=== PATIENT | male | born 1985 | race Caucasian/White ===

== ENCOUNTER 2020-01-25 23:57 | Emergency (ER) | payer OTHER, SELFPAY ==
[2020-01-26 00:38] VITALS: BP 134/78; PULSE 94; RESP 16; TEMP 37.7; O2SAT 98; BMI 30.7
--- NOTE | 2020-01-26 00:51 | ED.GENADULT ---
HPI - General Adult General Chief complaint: General Medical Stated complaint: COVID SYMPTOMS Time Seen by Provider: 01/26/20 00:51 Source: patient Mode of arrival: ambulatory Limitations: no limitations History of Present Illness HPI narrative: This is a 34-year-old male with present patient of sore throat and cough and very mild shortness of breath without any fevers, chills, GI symptoms, symptoms. In addition, patient has mild body aches. Related Data Allergies Allergy/AdvReac Type Severity Reaction Status Date / Time No Known Allergies Allergy Verified 01/26/20 00:48 Review of Systems Review of Systems: Pertinent positives and negatives as stated in HPI 10 point review of systems is otherwise negative. FORMERLY [facility] Past Medical History Source: nursing notes reviewed Medical History No known health problems Social History Social History Alcohol intake: never Smoked in Last 30 Days: No Use of substances other than those prescribed or required for medical reasons: No Any prior treatment program specific to substance use: No Advance Directives: No Advance Directives Information Provided: No Physical Exam Vital Signs: Vital Signs: Last Vital Signs Temp 99.9 F 01/26/20 00:38 Pulse 94 01/26/20 00:38 Resp 16 01/26/20 00:38 BP 134/78 01/26/20 00:38 Pulse Ox 98 01/26/20 00:38 Body Mass Index 30.7 VITAL SIGNS: Reviewed. GENERAL: Well developed, well nourished, in no acute distress. HEAD: Normocephalic/atraumatic, EYES: PERRLA, EOMI intact without pain, no nystagmus/pallor/icterus noted EARS: Ext canals without abnormality, TMs non-bulging and non-erythematous NOSE: Nares patent bilateral OROPHARYNX: no oral lesions noted, posterior pharynx clear and non-erythematous without noted tonsillar enlargement/erythema/exudates NECK: Supple, no adenopathy LUNGS: Normal breath sounds. No adventitious sounds or accessory muscle use. SpO2<98> CARDIOVASCULAR: Regular rate and rhythm without noted murmurs, no JVD or lower extremity edema. ABDOMEN: Soft, non-tender, non-distended with bowel sounds. No rigidity. No guarding. No palpable masses or hernias noted MUSCULOSKELETAL: No tenderness, deformities, or effusions noted on gross inspection. EXTREMITIES: No cyanosis, clubbing or edema. SKIN: Inspection of the skin reveals no rashes, ulcerations, jaundice, pallor, or petechiae. NEUROLOGIC: Alert and oriented x 4. Strength and sensation to light touch were grossly intact x 4. Course Course Course Narrative: This is a 34-year-old male with history and clinical presentation consistent with viral syndrome, there is no findings on clinical exam of ear or throat bacterial type infections. Patient was swabbed for COVID-19 and discharged with strict instructions to self quarantine. Discharge Plan Discharge Clinical Impression: Viral syndrome Patient Disposition: Home, Self-Care Instructions: Viral Syndrome (ED) Additional Instructions: 1. Tylenol 1000 mg, orally, every 6 hours as needed for temperatures greater than 100.4 or body aches. Do not exceed 4000 mg within 24 hours. 2. ibuprofen 400 mg, orally with milk or food, every 6 hours as needed for temperatures greater than 100.4 or body aches. 3. your required by the [facility] to self quarantine until your called with your COVID-19 results. You must and adhere to all state regulated guidelines for COVID-19 testing and self quarantine. The patient and/or family acknowledge understanding of results (as applicable), diagnosis, treatment plan, need for follow up, and symptoms that should prompt a return to the emergency room. Referrals: Physician,Unknown [Primary Care Provider] - 2 days
== END 2020-01-26 01:40 | disposition home or self-care (01) ==
PROVIDERS: Emergency Provider Student in an Organized Health Care Education/Training Program
DX: B34.9 Viral infection, unspecified (principal); Z20.828 Contact with and (suspected) exposure to other viral communicable diseases; R50.9 Fever, unspecified
CPT/HCPCS: 99283; U0003

== ENCOUNTER 2021-09-15 02:32 | Emergency (ER) | payer OTHER, SELFPAY ==
--- NOTE | ~2021-09-15 | CT_ITS ---
EXAMINATION: CT HEAD WITHOUT CONTRAST CLINICAL INFORMATION: Numbness, headache. COMPARISON: None TECHNIQUE: Contiguous axial imaging was performed from the skull base to vertex without intravenous administration of contrast. This CT examination was performed using dose optimization techniques as appropriate, variously including the following: *Automated exposure control *Adjustment of mA and/or kV according to patient size (this includes techniques or standardized protocols for targeted exams where dose is matched to indication/reason for exam; i.e. extremities or head) *Use of iterative reconstruction technique DLP: 785 mGy-cm FINDINGS: There is no evidence of acute intracranial hemorrhage or territorial infarction. No abnormal mass effect or midline shift is seen. Lopez to white matter differentiation is well preserved. No extra-axial fluid collections are identified. The ventricles are normal in size. There is no abnormal attenuation within the brain parenchyma. The osseous structures and soft tissues are normal. The mastoid air cells and visualized portions of the paranasal sinuses are well aerated. CT/CT head/brain wo con IMPRESSION: No acute intracranial hemorrhage or mass effect.
[2021-09-15 02:36] VITALS: BP 135/87; PULSE 82; RESP 14; TEMP 37; O2SAT 97; BMI 29.7
--- NOTE | 2021-09-15 09:09 | ED_ITS ---
HPI - Abdominal Pain General Chief Complaint: Abdominal Pain Stated Complaint: Hernia/Dizziness Time Seen by Provider: 09/15/21 09:06 Source: patient and cat scan tech Mode of arrival: ambulatory Limitations: language barrier History of Present Illness HPI narrative: 35-year-old male previously healthy here with multiple complaints. Patient tells me he does not have a primary care doctor but he does have insurance. He has had pain around his umbilicus with a hernia palpated with certain movement for over 5 years. It has been intermittently painful over the last 2 years. There is no associated nausea, vomiting, diarrhea, constipation. No fevers or chills or urinary symptoms. Patient has never had this hernia evaluated. Patient also reports multiple life stresses over the last few weeks and history of anxiety. Not currently taking any medication for anxiety. He has been trying to establish a therapist but has been unsuccessful. Patient reports yesterday he was feeling quite anxious around 15:00. He started to have palpitation, perioral numbness and tingling, hand bilateral numbness and ting ling which lasted for approximately 2 hours. He took half a tablet of a friend's Xanax which seemed to improve his symptoms. Patient reports all symptoms are resolved with the exception of a mild headache. No dizziness, vision changes, nausea, vomiting, weakness, speech changes associated. Related Data Previous Rx's Medication Instructions Recorded hydroxyzine pamoate 50 mg capsule 50 mg PO TID PRN anxiety #14 caps 09/15/21 (Vistaril) Allergies Allergy/AdvReac Type Severity Reaction Status Date / Time No Known Allergies Allergy Verified 01/26/20 00:48 Review of Systems Review of Systems Yes all other systems are reviewed and are negative Constitutional: Reports no additional constitutional complaints, Denies body ache(s), Denies chills, Denies fever(s), Reports headache(s) and Denies weakness Eyes: Reports no additional eye complaints and Denies change in vision Reports system reviewed and no additional complaints, except as documented, Denies dizziness, Reports headache(s), Denies nasal congestion, Denies nasal discharge and Denies neck pain Cardiovascular: Reports no additional cardiovascular complaints, Denies chest pain, Denies leg edema and Denies dyspnea Respiratory: Reports no additional respiratory complaints, Denies cough and Denies dyspnea Gastrointestinal: Reports no additional gastrointestinal complaints, Reports abdominal pain, Denies diarrhea, Reports nausea and Denies vomiting Genitourinary: Denies urinary incontinence Musculoskeletal: Reports no additional musculoskeletal complaints, Denies back pain, Denies arthralgias, Denies joint swelling, Denies neck pain, Reports numbness and Reports tingling Skin/Breast: Reports system reviewed and no additional complaints, except as docu and Denies rash Reports system reviewed and no additional complaints, except as documented, Denies dizziness, Reports headache(s), Reports numbness, Reports tingling and Denies weakness PMFSH Past Medical History Attestation statement: The following information was validated with the patient. Source: old records reviewed and nursing notes reviewed Medical History No known health problems Social History Social History Alcohol intake: never Patient Tobacco Use Status: Never used Tobacco Advance Directives: No Advance Directives Information Provided: No Physical Exam ED Vital Signs: Vital Signs - 24 hr 09/15/21 02:36 09/15/21 09:49 09/15/21 11:42 Temperature 98.6 F 98.0 F 98.1 F Pulse Rate 82 64 75 Respiratory Rate 14 14 16 Blood Pressure 135/87 119/86 111/81 Pulse Oximetry 97 99 99 Oxygen Delivery Method Room Air Room Air Room Air BMI result Body Mass Index 29.7 Const General: cooperative, healthy appearing, comfortable and no acute distress Orientation/consciousness: patient oriented x3 Limitations: language barrier HENMT Head: Yes normal to inspection Ears: hearing grossly normal bilaterally and TM's normal bilaterally General nose exam: Normal external nose present Face and sinus: Yes normal facial exam Mouth: Normal oral and palatal mucosa present Throat: Yes posterior oropharynx normal, Yes tonsils normal and Yes uvula midline Eyes General: appearance normal, both eyes and all related structures Pupils: Equal, round and reactive pupils present Neck Neck: Yes normal visual inspection, Yes full ROM, Yes no lymphadenopathy and Yes no meningeal signs Chest Chest palpation & inspection: normal inspection of the chest Resp Effort & Inspection: normal respiratory effort Auscultation: clear to auscultation bilaterally Cardio Rate: regular rate Rhythm: regular rhythm Peripheral pulses: Peripheral pulses 2+ throughout GI Other: Mild tenderness around umbilicus but no rebound or guarding. No palpable hernia Inspection: Yes normal to inspection Palpation (GI): Soft to palpation and nontender Back/Spine/Pelvis Thoracic/Lumbar Spine: thoracic and lumbar spine normal to inspection Skin General skin exam: no rashes or lesions noted Neuro General: patient oriented x3, moves all extremities and no meningeal signs Cranial nerves: Yes CN's II-XII intact bilaterally, Yes Equal, round and reactive pupils present, Yes Bilaterally intact EOM present, Yes Nystagmus not present, Yes Normal facial strength present and Yes Midline tongue present Cognition (Neuro): normal cognition Gait exam (Neuro): Normal gait present Motor exam (neuro): 5/5 motor strength present throughout Sensory Exam: Normal double simultaneous stimulation for sensation Coordination: [id number] test normal, gqfh-[id number] test normal and tandem gait normal Extrem General: Yes normal to inspection, Yes no pedal edema and Yes no calf tenderness Course Course Course Narrative: 1000-Seen by Jonas from care team. Given outpatient reources. Printed list of PCPs accepting patient's insurance in the area was provided. Reevaluation(s) Reevaluation #1: 1145-labs are unremarkable. EKG shows no ischemic changes. CT head is negative. Plan for discharge home with follow-up with outpatient therapy, PCP, General surgery as needed. Reviewed worrisome signs and symptoms and when to return to the emergency department. Comfortable with plan for discharge home. MDM - Abdominal Pain MDM Narrative Medical decision making narrative: 35 yo male here with multiple complaints with seem ongoing for years but patient has no PCP/outpatient resources. He does have insurance. 1) Reports of periumbicul hernia felt during increased abdominal pressure >5 yrs with intermittent discomfort. On exam mild tenderness around the umbilicus with no rebound or guarding and no obvious hernia palpated. +BS. No reports of associated vomiting/diarrhea/constipation or fever. Low concern for incarcerated hernia. Patient can be referred to general surgery outpatient. 2) Episode yesterday of TIMMONS, perioral numbness/tingling, bilateral hand numbness/tingling, dizziness with preceding anxiety improved with xanax. Still has slight TIMMONS but all other symptoms resolved. Normal neuro exam with no focal findings today. Will check CT head, EKG, labs. Seems c/w with panic attack. Less concerned for ICH/CVA/lesion. 3) Increasing anxiety with multiple life stressors. NO SI/HI. Will have care team provide resources to establish outpatient providers. 4) NO PCP. Will have CM provide resources. Medical Records Attestation: I reviewed the patient's medical records. Lab Data Attestation: I reviewed the patient's lab results. Result diagrams: 09/15/21 10:41 09/15/21 10:41 Labs: Lab Results 09/15/21 09/15/21 09/15/21 Range/Units 10:01 10:41 10:41 WBC 6.5 (4.8-10.8) X10*3/uL RBC 5.14 (4.60-5.80) X10*6/uL Hgb 14.0 (14.0-18.0) g/dl Hct 41.2 L (42.0-52.0) % MCV 80.2 (80.0-98.0) fL MCH 27.2 (27.0-33.0) pg MCHC 34.0 (31.0-36.0) g/dl RDW 12.9 (11.0-16.0) % Plt Count 208 (160-400) X10*3/uL MPV 9.9 (9.4-12.4) fL Immature Gran % (Auto) 0.5 H (0.0-0.4) % Neut % (Auto) 58.8 (45-73) % Lymph % (Auto) 28.3 (20-40) % [place] % (Auto) 11.1 H (2-11) % Eos % (Auto) 1.1 (0-4) % Baso % (Auto) 0.2 (0-2) % Lymph # (Auto) 1.8 (1.2-4.9) X10*3/uL [place] # (Auto) 0.7 (0.1-1.2) X10*3/uL Eos # (Auto) 0.1 (0.0-0.4) X10*3/uL Baso # (Auto) 0.0 (0.0-0.2) X10*3/uL Abs Immat Gran (auto) 0.03 (0.00-0.03) X10*3/uL Absolute Neuts (auto) 3.8 (2.0-8.3) x10*3/uL Absolute Nucleated RBC 0.000 (0.0-0.012) X10*3/uL Nucleated RBC % (auto) 0.0 (0.0-0.2) /100WBC Sodium 138 (135-145) mmol/L Potassium 3.9 (3.3-5.1) mmol/L Chloride 103 (96-108) mmol/L Carbon Dioxide 29 (22-29) mmol/L Anion Gap 10 L (12-20) BUN 10 (9-16) mg/dL Creatinine 0.85 (0.5-1.4) mg/dL Estim Creat Clear Calc 127.1 Estimated GFR > 60 Random Glucose 99 (60-115) mg/dL Calcium 9.2 (8.4-10.2) mg/dL Magnesium 2.0 (1.6-2.6) mg/dL Total Bilirubin 0.5 (0.0-1.0) mg/dL Direct Bilirubin 0.2 (0.0-0.5) mg/dL AST 19 (5-37) U/L ALT 28 (0-40) U/L Alkaline Phosphatase 82 (39-117) U/L Troponin I High Sens (<3.5-35.0) ng/L Total Protein 7.3 (6.5-8.0) g/dL Albumin 4.7 (3.5-5.0) g/dL Urine Color YELLOW Urine Appearance CLEAR Urine pH 6.0 (5.0-8.0) Ur Specific [place] 1.015 (1.005-1.025) Urine Protein NEG (NEG-TRACE) MG/DL Urine Glucose (UA) NEG (NEG) MG/DL Urine Ketones NEG (NEG) MG/DL Urine Blood NEG (NEG) Urine Nitrite NEG (NEG) Ur Leukocyte Esterase NEG (NEG) 09/15/21 Range/Units 10:41 WBC (4.8-10.8) X10*3/uL RBC (4.60-5.80) X10*6/uL Hgb (14.0-18.0) g/dl Hct (42.0-52.0) % MCV (80.0-98.0) fL MCH (27.0-33.0) pg MCHC (31.0-36.0) g/dl RDW (11.0-16.0) % Plt Count (160-400) X10*3/uL MPV (9.4-12.4) fL Immature Gran % (Auto) (0.0-0.4) % Neut % (Auto) (45-73) % Lymph % (Auto) (20-40) % [place] % (Auto) (2-11) % Eos % (Auto) (0-4) % Baso % (Auto) (0-2) % Lymph # (Auto) (1.2-4.9) X10*3/uL [place] # (Auto) (0.1-1.2) X10*3/uL Eos # (Auto) (0.0-0.4) X10*3/uL Baso # (Auto) (0.0-0.2) X10*3/uL Abs Immat Gran (auto) (0.00-0.03) X10*3/uL Absolute Neuts (auto) (2.0-8.3) x10*3/uL Absolute Nucleated RBC (0.0-0.012) X10*3/uL Nucleated RBC % (auto) (0.0-0.2) /100WBC Sodium (135-145) mmol/L Potassium (3.3-5.1) mmol/L Chloride (96-108) mmol/L Carbon Dioxide (22-29) mmol/L Anion Gap (12-20) BUN (9-16) mg/dL Creatinine (0.5-1.4) mg/dL Estim Creat Clear Calc Estimated GFR Random Glucose (60-115) mg/dL Calcium (8.4-10.2) mg/dL Magnesium (1.6-2.6) mg/dL Total Bilirubin (0.0-1.0) mg/dL Direct Bilirubin (0.0-0.5) mg/dL AST (5-37) U/L ALT (0-40) U/L Alkaline Phosphatase (39-117) U/L Troponin I High Sens < 3.5 (<3.5-35.0) ng/L Total Protein (6.5-8.0) g/dL Albumin (3.5-5.0) g/dL Urine Color Urine Appearance Urine pH (5.0-8.0) Ur Specific [place] (1.005-1.025) Urine Protein (NEG-TRACE) MG/DL Urine Glucose (UA) (NEG) MG/DL Urine Ketones (NEG) MG/DL Urine Blood (NEG) Urine Nitrite (NEG) Ur Leukocyte Esterase (NEG) Imaging Data CT scan - head: Attestation: I personally reviewed and interpreted this imaging study as follows: Radiologist's impression: [address] [address] [address] Scan Report Signed Patient: Henrry Johnson MR#: [id number] : 1985 Acct:[id number] Age/Sex: 35 / M ADM Date: 09/15/21 Loc: HO.ED Attending Dr: Ordering Physician: Renée Lopez NP Date of Service: 09/15/21 Procedure(s): CT head/brain wo con Accession Number(s): [id number] cc: Renée Lopez NP~ EXAMINATION: CT HEAD WITHOUT CONTRAST CLINICAL INFORMATION: Numbness, headache.? COMPARISON: None TECHNIQUE: Contiguous axial imaging was performed from the skull base to vertex without intravenous administration of contrast. This CT examination was performed using dose optimization techniques as appropriate, variously including the following: *Automated exposure control *Adjustment of mA and/or kV according to patient size (this includes techniques or standardized protocols for targeted exams where dose is matched to indication/reason for exam; i.e. extremities or head) *Use of iterative reconstruction technique DLP: 785 mGy-cm FINDINGS: There is no evidence of acute intracranial hemorrhage or territorial infarction. No abnormal mass effect or midline shift is seen. Lopez to white matter differentiation is well preserved. No extra-axial fluid collections are identified. The ventricles are normal in size. There is no abnormal attenuation within the brain parenchyma. The osseous structures and soft tissues are normal. The mastoid air cells and visualized portions of the paranasal sinuses are well aerated. ? CT/CT head/brain wo con IMPRESSION: No acute intracranial hemorrhage or mass effect. ECG Data Attestation: I personally reviewed and interpreted this ECG as follows: ECG interpretation date: 09/15/21 ECG interpretation time: 09:48 Interpretation: Normal sinus rhythm with a rate of 60, normal LA, normal QRS, normal QT Discharge Plan Discharge Clinical Impression: Anxiety, Hernia Patient Disposition: Home, Self-Care Additional Instructions: Follow-up with outpatient resources by social work to establish a therapist and prescribing doctor as needed See list to establish PCP Prescriptions: New hydroxyzine pamoate [Vistaril] 50 mg capsule 50 mg PO TID PRN (Reason: anxiety) Qty: 14 0RF Referrals: Vipul Mckeon MD [Physician] - 2 weeks Interventions: ED Discharge Assessment Last Done: 09/15/21 11:59 Discharge Date/Time: 09/15/21 12:00 Print Language: German
--- NOTE | 2021-09-15 09:27 | ECG_ITS ---
Test Reason : CHEST PAIN Blood Pressure : / mmHG Vent. Rate : 060 BPM Atrial Rate : 060 BPM P-R Int : 160 ms QRS Dur : 114 ms QT Int : 358 ms P-R-T Axes : 078 044 058 degrees QTc Int : 358 ms Normal sinus rhythm Incomplete right bundle branch block Borderline ECG No previous ECGs available Referred By: Renée Lopez Electronically Signed By:Gui Walsh
--- NOTE | 2021-09-15 09:40 | PC.NURSE ---
Pt seen by care team. Patient aware of plan of care.
[2021-09-15 09:49] VITALS: BP 119/86; PULSE 64; RESP 14; TEMP 36.7; O2SAT 99
--- NOTE | 2021-09-15 09:56 | PC.NURSE ---
Pt is alert and oriented x 3. Reports chest pain with numbing sensation radiating to the left arm. Pt reports taking Percocet 30mg at 0800 prior to arrival for pain in the waiting room. Lung sounds are clear. Heart sounds are regular. Active bowel sounds on all quadrants. Dark discoloration to bilateral inner foot. Pt states has been there for about a year. Patient is aware of plan of care. MLP aware.
[2021-09-15 10:14] LABS: Appearance Urine CLEAR; Color Urine YELLOW; Glucose Urine UA NEG (NEG); Leukocyte Esterase Urine NEG (NEG); Nitrite Urine NEG (NEG); Specific Gravity - Urine 1.015 (1.005-1.025); Urine Blood NEG (NEG); Urine Ketones NEG (NEG); Urine Protein NEG (NEG-TRACE)
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
[2021-09-15 10:45] LABS: MANUAL DIFF FLAG NO
[2021-09-15 10:46] LABS: Basophils Percent Auto 0.2 % (0-2); Eosinophils Absolute Auto 0.1 X10*3/uL (0.0-0.4); Eosinophils Percent Auto 1.1 % (0-4); Hematocrit 41.2 % (42.0-52.0); Imm Gran Abs Auto 0.03 X10*3/uL (0.00-0.03); Imm Gran Pct Auto 0.5 % (0.0-0.4); Lymphocytes Absolute Auto 1.8 X10*3/uL (1.2-4.9); Lymphocytes Percent Auto 28.3 % (20-40); Mean Corpuscular Hemoglobin 27.2 pg (27.0-33.0); Mean Corpuscular Volume 80.2 fL (80.0-98.0); Mean Platelet Volume 9.9 fL (9.4-12.4); Monocytes Absolute Auto 0.7 X10*3/uL (0.1-1.2); Monocytes Percent Auto 11.1 % (2-11); Neutrophils Absolute Auto 3.8 x10*3/uL (2.0-8.3); Neutrophils Percent Auto 58.8 % (45-73); Platelet Count 208 X10*3/uL (160-400); Red Blood Count 5.14 X10*6/uL (4.60-5.80); Red Cell Distribution Width 12.9 % (11.0-16.0); White Blood Count 6.5 X10*3/uL (4.8-10.8)
[2021-09-15 11:15] LABS: Alanine Aminotransferase 28 U/L (0-40); Albumin Level 4.7 g/dL (3.5-5.0); Alkaline Phosphatase 82 U/L (39-117); Anion Gap 10 (12-20); Aspartate Amino Transferase 19 U/L (5-37); Bilirubin Direct 0.2 mg/dL (0.0-0.5); Bilirubin Total 0.5 mg/dL (0.0-1.0); Blood Urea Nitrogen 10 mg/dL (9-16); Calcium 9.2 mg/dL (8.4-10.2); Carbon Dioxide 29 mmol/L (22-29); Chloride 103 mmol/L (96-108); Creatinine Clr Calc Pharmacy 127.1; Estimated Glomerular Filt Rate > 60; Glucose Random 99 mg/dL (60-115); Potassium 3.9 mmol/L (3.3-5.1); Sodium 138 mmol/L (135-145); Total Protein 7.3 g/dL (6.5-8.0)
[2021-09-15 11:21] LABS: Troponin-I High Sensitivity < 3.5 ng/L (<3.5-35.0)
[2021-09-15 11:42] VITALS: BP 111/81; PULSE 75; RESP 16; TEMP 36.7; O2SAT 99
== END 2021-09-15 12:00 | disposition home or self-care (01) ==
PROVIDERS: Nurse Practitioner Family; Emergency Provider Student in an Organized Health Care Education/Training Program
DX: F41.9 Anxiety disorder, unspecified (principal); K46.9 Unspecified abdominal hernia without obstruction or gangrene; R51.9 Headache, unspecified; R20.0 Anesthesia of skin
CPT/HCPCS: 36415; 70450; 80048; 80076; 81003; 83735; 84484; 85025; 93005; 99284

== ENCOUNTER → 2021-09-28 14:30 | Outpatient (BNVA) | payer OTHER, SELFPAY | PROVIDERS: Visit Provider Surgery | DX: K43.9 Ventral hernia without obstruction or gangrene (principal); R20.2 Paresthesia of skin; R47.89 Other speech disturbances | CPT/HCPCS: 99202 ==

== ENCOUNTER → 2021-12-21 14:51 | Outpatient (BNVA) | payer OTHER, SELFPAY | PROVIDERS: Visit Provider Surgery | DX: K43.9 Ventral hernia without obstruction or gangrene (principal); R20.2 Paresthesia of skin; R47.89 Other speech disturbances; Z98.890 Other specified postprocedural states; Z87.19 Personal history of other diseases of the digestive system | CPT/HCPCS: 99212 ==